=== PATIENT | female | born 1940 | race Caucasian/White ===

== ENCOUNTER 2017-10-01 09:12 | Emergency (ER) | payer OTHER ==
[~2017-10-01] VITALS: Ht 165.1 cm; Wt 73.5 kg
--- NOTE | ~2017-10-01 | EKG ---
[address] [address] ELECTROCARDIOGRAM REPORT Name: KALPANA CARLTON Room #: [id number] Admission: 10/01/17 Attend Phys: Discharge: 10/01/17 Date of : 44 Report #: [id number] THIS REPORT FOR: //name// [facility] ED Test Date: 2017-10-01 Test Time: 09:48:49 Pat Name: KALPANA CARLTON Department: Room: Gender: F Branch Operations Coordinator: [facility] [[email or web address]] : 1940 Requested By: Eric Bolanos Order Number: [id number] MD: Delon Ferrer Measurements Intervals [place] Rate: 63 P: 26 MS: 138 QRS: 3 QRSD: 94 T: 35 QT: 417 QTc: 427 Interpretive Statements Sinus rhythm No previous ECG available for comparison Electronically Signed On 10-01-2017 16:21:11 SENIOR APPLICATION PROGRAMMER by Delon Ferrer [email or web address] <ELECTRONICALLY SIGNED> By: Delon Ferrer MD 10/01/17 1621 0948 0948 Delon Ferrer MD /CINDY
[~2017-10-01 09:12] MED LIST: ASPIR 8181 MG PO; B-121000 MC2 PO; CENTRUM SILVER1 EAC4 PO; FISH OIL 1,0001 EAC8 PO; IBUPROFEN 200200 M1 PO; LEVOTHYROXINE 0.1 MG PO; LISINOPRIL20 MG PO; MOVE FREE ULTR1 EACH PO; OCUVITE SOFTGE1 EAC1 PO; PROBIOTIC1 EAC1 PO; VITAMIN D31000 UNI2 PO; [UNRECOGNIZED DRUG - OTHER]; [UNRECOGNIZED DRUG - REMARK]
[2017-10-01 09:55] LABS: HEMATOCRIT 41.5 % (37.0-47.0); HEMOGLOBIN 14.7 gm/dL (12.0-15.0); MCH 33.3 pg (26.0-34.0); MCHC 35.5 g/dL (28.0-37.0); PLATELET COUNT 204 thou/uL (150-400); RBC 4.42 mil/uL (4.20-5.00); RDW 12.1 % (10.5-14.5); WBC 10.5 thou/uL (4.0-11.0)
[2017-10-01 09:56] LABS: URINE BILIRUBIN NEGATIVE (Negative); URINE BLOOD NEGATIVE (Negative); URINE CLARITY CLEAR; URINE COLOR YELLOW; URINE GLUCOSE-RANDOM* NEGATIVE (Negative); URINE KETONES NEGATIVE (Negative); URINE LEUKOCYTES TRACE (Negative); URINE NITRITE NEGATIVE (Negative); URINE PROTEIN (DIPSTICK) NEGATIVE (Negative); URINE SPECIFIC GRAVITY <= 1.005 (1.005-1.035); URINE UROBILINOGEN 0.2 E.U./dl (0.2-1.0)
[2017-10-01 10:02] LABS: ANION GAP 10 mmol/L (7-16); BUN 10 mg/dL (7-18); CALCIUM 8.9 mg/dL (8.5-10.1); CHLORIDE 102 mmol/L (98-107); CO2 22 mmol/L (21-32); CREATININE 0.9 mg/dL (0.6-1.0); GLUCOSE 119 mg/dL (74-106); POTASSIUM 3.8 mmol/L (3.5-5.1); SODIUM 134 mmol/L (136-145)
[2017-10-01 10:11] LABS: ALBUMIN 3.6 g/dL (3.4-5.0); DIRECT BILIRUBIN 0.1 mg/dL (<0.1-0.3); LIPASE 103 U/L (73-393); SGOT 31 U/L (15-37); SGPT 55 U/L (30-65); TOTAL BILIRUBIN 0.5 mg/dL (<0.1-1.0); TOTAL PROTEIN 7.1 g/dL (6.4-8.2); TROPONIN-I < 0.04 ng/mL (<0.06)
[2017-10-01 10:21] LABS: ABSOLUTE NEUTROPHILS 7.2 thou/uL (1.4-8.2)
[2017-10-01] MEDS ORDERED: CARAFATE 1 GM TA1 G1 PO (10:43)
[2017-10-01] MEDS ORDERED: ONDANSETRON HCL4 M2 PO (10:43)
[2017-10-01 10:54] VITALS: BP 121/76
== END 2017-10-01 11:03 | disposition home or self-care (01) ==
LOC: ER 09:12
PROVIDERS: Nurse Practitioner
DX: K52.9 Noninfective gastroenteritis and colitis, unspecified (principal); I10 Essential (primary) hypertension; E78.00 Pure hypercholesterolemia, unspecified; E03.9 Hypothyroidism, unspecified; Z88.1 Allergy status to other antibiotic agents